=== PATIENT | female | born 2000 | race Caucasian/White ===

== ENCOUNTER 2024-01-19 14:12 | Emergency (ER) | payer OTHER ==
[2024-01-19] MEDS ORDERED: Bacitracin Oint 1 GM U/D Packet TOP ONE (15:18)
[2024-01-19] MEDS: Bacitracin Oint 1 GM U/D Packet TOP ONE (16:07)
== END 2024-01-19 16:35 | disposition home or self-care (01) ==
LOC: JP.ED 14:12
DX: S40.211A Abrasion of right shoulder, initial encounter (principal); S60.512A Abrasion of left hand, initial encounter; S60.511A Abrasion of right hand, initial encounter; R55 Syncope and collapse; Z79.899 Other long term (current) drug therapy; Z88.8 Allergy status to other drugs, medicaments and biological substances; V18.0XXA Pedal cycle driver injured in noncollision transport accident in nontraffic accident, initial encounter
CPT/HCPCS: 99284